=== PATIENT | female | born 1970 | race Caucasian/White ===

== ENCOUNTER → 2021-12-28 | Outpatient (CLI) | payer BC | LOC: RAD 16:59 | DX: U07.1 COVID-19 (principal); R91.8 Other nonspecific abnormal finding of lung field | CPT/HCPCS: 71046 ==

== ENCOUNTER → 2022-01-25 | Outpatient (CLI) | payer BC | LOC: RAD 16:27 | DX: U09.9 Post COVID-19 condition, unspecified (principal); R93.89 Abnormal findings on diagnostic imaging of other specified body structures | CPT/HCPCS: 71046 ==